=== PATIENT | female | born 1990 | race Two or more races ===

== ENCOUNTER 2023-03-16 09:03 | Outpatient (CLI) | payer OTHER | END 2023-03-16 09:11 | disposition home or self-care (01) | LOC: RX STUDY 09:03 | PROVIDERS: ATTEND Obstetrics & Gynecology | DX: N85.8 Other specified noninflammatory disorders of uterus (principal) ==

== ENCOUNTER 2025-03-28 09:25 | Outpatient (CLI) | payer OTHER | END 2025-03-28 09:31 | disposition home or self-care (01) | LOC: SONOGRAMA 09:25 | DX: N84.0 Polyp of corpus uteri (principal); D25.9 Leiomyoma of uterus, unspecified ==